=== PATIENT | female | born 1940 | race Caucasian/White ===

== ENCOUNTER 2023-10-28 13:02 | Emergency (ER) | payer MEDICARE, SELFPAY ==
[2023-10-28 13:04] VITALS: BP 128/53; PULSE 87; RESP 18; TEMP 36.8; O2SAT 97
--- NOTE | 2023-10-28 13:45 | DI.RAD_ITS ---
Exam(s) XR KNEE RT 4V AP,LAT,PAUL,PAT EXAM: XR KNEE RT 4V AP,LAT,PAUL,PAT CLINICAL HISTORY: Blunt trauma 2 weeks ago, pain not improving. TECHNIQUE: 2D digital imaging was performed of the right knee. Four views obtained. Merchant, AP, la teral and PA tunnel views were obtained. COMPARISON: No exams were available for comparison FINDINGS: BONES: No acute fracture is present. No bony destructive lesion is seen. JOINTS: There is narrowing of the lateral femoral tibial joint. Small osteophytes are seen at the po sterior patella and the lateral femoral tibial joint. There is also joint space narrowing of the pat ellofemoral joint. No joint effusion is seen. SOFT TISSUE: There is soft tissue swelling. IMPRESSION: 1. There is soft tissue swelling around the knee particularly anterior to the patella. 2. No acute or healing fracture or dislocation is seen. No joint effusion is appreciated. 3. Degenerative changes of the right knee as described. DATA REPOSITORY: RADIATION DOSE DELIVERED:
--- NOTE | 2023-10-28 14:37 | ED.GENADUL_ITS ---
Discharge Plan Disposition Patient Disposition: Home Discharge Details Clinical Impression: Knee pain, right Primary Care Provider: Monica Rangel ED Provider: Rene Zhong Home Meds and New Rx's Prescriptions: New diclofenac sodium [Voltaren Arthritis Pain] 1 % gel 2 g topical QID PRN (Reason: pain) Qty: 100 1RF Rx Instructions: apply to single knee, ankle, foot; for foot includes sole/toes/top of foot Continued warfarin 5 mg tablet 5 mg PO DAILY Patient Comments: take 1 tablet once on saturday, saturday, , saturday, saturday. take 1/2 tab on saturday and saturday as directed chlorthalidone 25 mg tablet 25 mg PO DAILY Patient Comments: TAKE ONE (1) TABLET BY MOUTH ONCE DAILY metoprolol succinate 100 mg tablet extended release 24 hr 100 mg PO DAILY Patient Comments: TAKE ONE (1) TABLET BY MOUTH ONCE DAILY Discharge Instructions Instructions: Knee Pain ED Additional Instructions: At this time your radiological imaging showed soft tissue swelling and some degenerative changes that could be causing your continued discomfort. Please use the provided knee support and perform activities as tolerated You may take up to 2000 mg of acetaminophen in a 24-hour period as needed for pain control along with the provided pain cream. Feel free to return the emergency department for any new or significant w orsening of symptoms otherwise follow-up with your primary care or local orthopedist when you return home Referrals: [facility] [Primary Care Provider] - (Follow-up with your primary care provider or local orthopedist when you return home if still having knee pain and discomfort) HPI General Mode of arrival: ambulatory . Date/Time Provider Initiated Documentation: 10/28/23 13:12 . Limitations to Documentation: no limitations . Information obtained by: patient and RN notes reviewed . History of Present Illness 83 year old F presents to the emergency department with the chief complaint of Right knee injury, described as moderate, Quality is described as aching, and is localized to the right and lower extremity. Patient started experiencing this week(s) (2) and it has been intermittent. Rest improves symptom(s), Movement worsens symptoms . Patient did receive the following treatments prior to arrival, other (Acetaminophen) Related Data Home Medications ?Medication ?Instructions ?Recorded ?Confirmed chlorthalidone 25 mg tablet 25 mg PO DAILY 10/28/23 10/28/23 diclofenac sodium 1 % topical gel 2 g topical QID PRN pain #100 grams 10/28/23 (Voltaren Arthritis Pain) metoprolol succinate 100 mg 100 mg PO DAILY 10/28/23 10/28/23 tablet,extended release 24 hr warfarin 5 mg tablet 5 mg PO DAILY 10/28/23 10/28/23 Previous Rx's ?Medication ?Instructions ?Recorded diclofenac sodium 1 % topical gel 2 g topical QID PRN pain #100 grams 10/28/23 (Voltaren Arthritis Pain) Allergies Allergy/AdvReac Type Severity Reaction Status Date / Time Penicillins Allergy Severe Anaphylaxis Verified 10/28/23 13:10 General Stated Complaint: Orthopedic MYRIAM: 4 Review of Systems Constitutional Constitutional: Denies fever(s) Musculoskeletal Musculoskeletal: Reports as per HPI, Reports arthralgias, Reports joint sw elling, Reports limited range of motion and Reports muscle cramps Integumentary/Breasts Skin/Breast: Reports unusual bruising Exam Const General: cooperative, no acute distress and not ill appearing Orientation: alert, awake and oriented x3 HENMT Mouth: moist mucous membranes Resp Effort & Inspection: normal respiratory effort, able to speak in complete sentences and no respiratory distress Cardio Rate: regular rate Rhythm: regular rhythm Neuro General: patient alert, patient awake, patient oriented x3, moves all extremities and no focal motor deficits Sensory Exam: no sensory deficits noted Extrem Right lower extremity: knee Details: abnormal to inspection Details: other (Significant anterior ecchymosis), tenderness Location: of the patella, swelli ng, normal ROM, knee ligament exam normal and ecchymosis; no crepitus Course Vital Signs Vital signs: Vital Signs Temperature 36.8 C 10/28/23 13:04 Pulse 87 10/28/23 13:04 Respiratory Rate 18 10/28/23 13:04 Blood Pressure 128/53 L 10/28/23 13:04 Pulse Oximetry 97 10/28/23 13:04 Temperature 36.8 C 10/28/23 13:04 Temperature Source Skin 10/28/23 13:04 Pulse 87 10/28/23 13:04 Respiratory Rate 18 10/28/23 13:04 Blood Pressure 128/53 L 10/28/23 13:04 Blood Pressure Position Sitting 10/28/23 13:04 Pulse Oximetry 97 10/28/23 13:04 Oxygen Delivery Method Room Air 10/28/23 13:04 Oxygen Flow Rate 0 10/28/23 13:04 Pain Level 9 10/28/23 13:04 Medical Decision Making Patient presenting to the emergency department for chief complaint of right knee pain. Patient reports 2 weeks ago she slipped and fell striking the patella/anterior knee on a rock causing significant swelling and ecchymosis. This is slowly improved but as she has used it more she has had more pain and discomfort to her knee. Patient denies any new injury or trauma, fever or chills does state some muscle cramping after walking or increased use but also states decrease fluid intake. Physical exam shows diffusely swollen and ecchymotic knee with no obvious effusion, no bony prominence tenderness, some tenderness to patella, exam otherwise noncontributory. More likely pain and discomfort is secondary to increased use after injury but will perform repeat imaging given that patient is complaining of lack of improvement or worsening pain. Review of radiological imaging shows no acute or healing fracture evidence on films. There is continued soft tissue swelling consistent with exam and some degenerative changes noted. Patient placed in a hinged knee brace to help support movement and she was encouraged to continue to use [id number] acetaminophen and I did prescribe her some diclofenac gel to also help with pain. After discussion of diagnosis and plan of care patient has no further needs, questions, or concerns and states clear understanding to return to the emergency department for any worsening symptoms. This documentation was generated using [employer] dictation system, please disregard any oddities of phrase or misspellings. Imaging Data Radiologic Study: Imaging: X-Ray Radiologist's impression: Exam(s) XR KNEE RT 4V AP,LAT,PAUL,PAT EXAM: XR KNEE RT 4V AP,LAT,PAUL,PAT CLINICAL HISTORY: Blunt trauma 2 weeks ago, pain not improving. TECHNIQUE: 2D digital imaging was performed of the right knee. Four views obtained. Merchant, AP, lateral and PA tunnel views were obtained. COMPARISON: No exams were available for comparison FINDINGS: BONES: No acute fracture is present. No bony destructive lesion is seen. JOINTS: There is narrowing of the lateral femoral tibial joint. Small osteophyt es are seen at the posterior patella and the lateral femoral tibial joint. There is also joint space narrowing of the patellofemoral joint. No joint effusion is seen. SOFT TISSUE: There is soft tissue swelling. IMPRESSION: 1. There is soft tissue swelling around the knee particularly anterior to the patella. 2. No acute or healing fracture or dislocation is seen. No joint effusion is appreciated. 3. Degenerative changes of the right knee as described. Quality:SDOH Health Related Social Needs: No Data to Display PFSH All Active Problems (Updated 10/28/23 @ 14:51 by Rene Zhong NP) Knee pain, right (Acute) Social History Smoking/Tobacco Use Status: Never Smoking risk assessment performed?: Yes Drug use: Never Substance use type: does not use Housing: house Do you feel safe at home: Yes Do you feel safe in your relationship?: Yes
[2023-10-28 15:10] VITALS: BP 128/53; PULSE 87; RESP 18; TEMP 36.8; O2SAT 97
== END 2023-10-28 15:13 | disposition home or self-care (01) ==
PROVIDERS: Emergency Provider Nurse Practitioner Family
DX: M25.561 Pain in right knee (principal); Z79.01 Long term (current) use of anticoagulants
CPT/HCPCS: 99283; 73564